=== PATIENT | female | born 2000 | race Caucasian/White ===

== ENCOUNTER 2024-04-14 22:14 | Emergency (ER) | payer OTHER ==
[~2024-04-14] VITALS: Ht 157.5 cm; Wt 52.3 kg
[2024-04-14 22:18] VITALS: TEMP 98.6; O2SAT 98; O2SAT 99
[2024-04-14 23:13] LABS: HEMATOCRIT. 41.5 % (36.0-48.0); HEMOGLOBIN. 13.5 g/dL (12.0-16.0); MEAN CORPUSCULAR HGB CONC 32.6 g/dL (31.0-37.0); MEAN PLATELET VOLUME 7.3 fl (7.4-10.4); PLATELET 328 x1000/uL (130-400); RED BLOOD CELL COUNT 4.67 mill/uL (4.2-5.4); RED CELL DISTRIBUTION WIDTH 13.9 % (11.6-14.6); WHITE BLOOD COUNT 12.8 x1000/uL (4.5-11.0)
[2024-04-14 23:14] LABS: CHLORIDE 108 mEq/L (98-107); DIFFERENTIAL COMMENT 1; POTASSIUM 3.6 mEq/L (3.5-5.1); SODIUM 139 mEq/L (136-145)
[2024-04-14 23:15] LABS: CALCIUM 9.3 mg/dL (8.7-10.4); CARBON DIOXIDE 23 mEq/L (21-32)
[2024-04-14] MEDS: ONDANSETRON HCL 4MG/2ML INJ IV ONE (23:15)
[2024-04-14] MEDS: LACTATED RINGERS 1,000 ML IV SCH (23:15)
[2024-04-14] MEDS: FAMOTIDINE 20MG/2ML VIAL IV ONE (23:15)
[2024-04-14 23:19] LABS: HCG SCREEN NEGATIVE
[2024-04-14 23:20] LABS: CREATININE 0.8 mg/dL (0.6-1.0); GLUCOSE 116 mg/dL (70-105); UREA NITROGEN BLOOD 10 mg/dL (9-23)
[2024-04-14 23:22] LABS: ALANINE AMINOTRANSFERASE 13 IU/L (10-49); ALBUMIN 4.8 g/dL (3.2-4.8); ASPARTATE AMINOTRANSFERASE 21 IU/L (<34); BILIRUBIN DIRECT 0.2 mg/dL (<=3.0); BILIRUBIN TOTAL 0.7 mg/dL (0.1-1.0); PROTEIN TOTAL 7.7 g/dL (6.0-8.3)
[2024-04-14 23:26] LABS: PLATELET ESTIMATE NORMAL
[2024-04-15 00:53] VITALS: BP 102/62; PULSE 68; RESP 18
[2024-04-15] MEDS ORDERED: FAMO-134 PO (00:59)
[2024-04-15] MEDS ORDERED: ONDA-239 PO (00:59)
[2024-04-15] MEDS ORDERED: ACETAMINOPHEN 325MG TABLET PO ONE (01:30)
== END 2024-04-15 01:30 | disposition home or self-care (01) ==
LOC: ER 22:14
DX: R10.13 Epigastric pain (principal); R11.2 Nausea with vomiting, unspecified; R19.7 Diarrhea, unspecified
CPT/HCPCS: 99285; 96374; 96361; 96375; 80076; 80048; 84703; 83690; 85025; 36415; 76705; J3490; J2405

== ENCOUNTER 2024-04-15 02:04 | Emergency (ER) | payer OTHER ==
[~2024-04-15] VITALS: Ht 157.5 cm; Wt 63.8 kg
[~2024-04-15 02:04] MED LIST: FAMO-134 PO; ONDA-239 PO
[2024-04-15 02:07] VITALS: O2SAT 100
[2024-04-15 02:28] VITALS: BP 104/65; PULSE 98; RESP 18; TEMP 98.7; O2SAT 100
[2024-04-15] MEDS: ONDANSETRON HCL 4MG TABLET PO ONE (02:57)
== END 2024-04-15 04:28 | disposition home or self-care (01) ==
LOC: ER 02:59
DX: K29.70 Gastritis, unspecified, without bleeding (principal); E78.00 Pure hypercholesterolemia, unspecified
CPT/HCPCS: 99283; Q0162